=== PATIENT | female | born 1970 | race Two or more races ===

== ENCOUNTER 2017-08-21 10:55 | Outpatient (CLI) | payer OTHER ==
[~2017-08-21 10:55] MED LIST: ADVIL200 M1 PO
== END 2017-08-21 11:12 | disposition home or self-care (01) ==
LOC: SONOGRAMA 10:55
DX: M25.522 Pain in left elbow (principal)

== ENCOUNTER 2018-08-20 10:56 | Outpatient (CLI) | payer OTHER | END 2018-08-20 10:59 | disposition home or self-care (01) | LOC: SONOGRAMA 10:56 → MAMO-SONO 11:15 | DX: M25.572 Pain in left ankle and joints of left foot (principal) ==

== ENCOUNTER 2021-02-27 13:30 | Emergency (ER) | payer OTHER ==
[~2021-02-27] VITALS: Ht 175.3 cm; Wt 62.6 kg
== END 2021-02-27 18:29 | disposition home or self-care (01) ==
LOC: ER 13:30
DX: R53.81 Other malaise (principal); R53.83 Other fatigue

== ENCOUNTER 2022-05-31 10:39 | Emergency (ER) | payer OTHER ==
[~2022-05-31] VITALS: Ht 172.7 cm; Wt 58.1 kg
== END 2022-05-31 13:51 | disposition home or self-care (01) ==
LOC: ER 10:39
DX: U07.1 COVID-19 (principal)